=== PATIENT | female | born 1975 | race Caucasian/White ===

== ENCOUNTER 2018-04-07 01:00 | Inpatient (IN) ==
--- NOTE | 2018-04-07 01:23 | ED ---
HPI General Chief complaint: Medical Clearance Stated complaint: Medical/Trans [facility] Time Seen by Provider: 04/07/18 01:05 Source: patient and EMS Mode of arrival: EMS Limitations: no limitations History of Present Illness HPI narrative: Patient was a transfer ER to ER accepted by ENT Dr. Melo and by Dr. Diaz. The patient gives a history of a sore throat for several days was seen today at [place] diagnosed with strep throat and given IM penicillin and discharge. The patient then return at a later time at which time she had a CT neck which show that she had a peritonsillar abscess Onset (ago): day(s) (3) Location: mouth (Oropharynx) Radiation: non-radiation Severity: moderate Severity scale (1-10): 4 Quality: aching Pain Consistency: constant Relieving factors: none Exacerbating factors: eating (Swallowing fluid or swallowing anything according to patient) Associated symptoms: denies other symptoms Treatments prior to arrival: none (Patient was given Decadron, clindamycin IV) Related Data Home Medications Medication Instructions Recorded Confirmed No Known Home Medications 04/07/18 04/07/18 Allergies Allergy/AdvReac Type Severity Reaction Status Date / Time No Known Allergies Allergy Verified 04/07/18 01:13 Review of Systems ROS: all other systems reviewed are negative PMFSH History History Provided By: Patient Surgical History Surgical History H/O tubal ligation (Acute) Social History Social History Substance History: No History of Abuse Second Hand Smoke Exposure: No Smoking Status: Former smoker How Often Do You Have a Drink Containing Alcohol: 2 to 4 times a month Recent Travel in [facility] within the Last 8 Weeks: No Recent Out of Country Travel within the Last 8 Weeks: No Immunization History Tetanus Immunization: <5 Years Tetanus Immunization Year if Known: 2017 Hx Influenza Vaccine This Season: No Exam Narrative Exam Narrative: GENERAL: Well-nourished, well-developed patient in no apparent distress. SKIN: Warm and dry. HEAD: Atraumatic. Normocephalic. EYES: Pupils equal and round. No scleral icterus. No injection or drainage. ENT: No nasal bleeding or discharge. Mucous membranes pink and moist. Posterior oropharynx shows a left peritonsillar bulging consistent with peritonsillar abscess, no stridor no wheezing no drooling and patient's pulse oximetry reads 99% on room air NECK: Trachea midline. No JVD. Left-sided anterior cervical lymphadenopathy CARDIOVASCULAR: Regular rate and rhythm. no rubs or gallops RESPIRATORY: No accessory muscle use. Clear to auscultation. Breath sounds equal bilaterally. GASTROINTESTINAL: Abdomen soft, non-tender, nondistended. No rebound or guarding MUSCULOSKELETAL: Extremities without clubbing, cyanosis, or edema. No obvious deformities. NEUROLOGICAL: Awake and alert. No obvious cranial nerve deficits. Motor grossly within normal limits. Five out of 5 muscle strength in the arms and legs. Normal speech. PSYCHIATRIC: Appropriate mood and affect; insight and judgment normal. Course Initial Documented Vital Signs Temperature 98.9 F 04/07/18 01:05 Pulse Rate 74 04/07/18 01:05 Respiratory Rate 20 04/07/18 01:05 Blood Pressure 112/67 04/07/18 01:05 Pulse Oximetry 99 04/07/18 01:05 Last Documented Vital Signs Temperature 98.9 F 04/07/18 01:05 Pulse Rate 74 04/07/18 01:05 Respiratory Rate 20 04/07/18 01:05 Blood Pressure 112/67 04/07/18 01:05 Pulse Oximetry 99 04/07/18 01:05 Medical Decision Making MDM Narrative Medical Screen Exam Complete: Yes Emergency Medical Condition: Yes Medical Records Medical records reviewed: Yes I reviewed the patient's medical records. Patient was sent with information and a printed chart in which a CTA of the neck show diffuse enlargement of the tonsils on the left with a central 1.8 x 1.1 cm low-attenuation area consistent with peritonsillar abscess there is also diffuse edema that extends along the left parapharyngeal soft tissues with enlargement of the epiglottis no other definite fluid collection is seen. Patient gives medical history of hepatitis bilateral tubal ligation and smoking CBC shows no leukocytosis with WBC of 9.6, H&H of 12.8/37.4, platelet count of 149,000. Electrolytes were all within normal limits, normal kidney function Normal coagulation factors Discharge Plan Physicians Team ED Provider: Anthony Marcelino Primary Care Provider: UNKNOWN, Rxs /Orders / Referrals /Forms Prescriptions: No Action No Known Home Medications RF: 0 Status ED Status: With Doctor
[2018-04-07] MEDS ORDERED: Ketorolac Inj 30 MG/ML (IVP) Vial IV.PUSH ONE (02:24)
[2018-04-07] MEDS: Morphine Inj 4 MG/ML Vial IV.PUSH PRN ×4 (04:08→23:14)
[2018-04-07] MEDS: Sod Chloride 0.9% Inj 1,000 ML IV.CONT SCH ×3 (04:09→23:18)
[2018-04-07] MEDS: Ampicillin/Sulbactam Inj 3 GM in Sodium Chloride 0.9% Inj 100 ML IV.SIG SCH ×4 (04:10→20:45)
[2018-04-07 10:37] LABS: Baso % (Auto) 0.1 % (0.0-2.0); Hematocrit 36.5 % (35.0-46.0); Hemoglobin 12.3 gm/dL (11.6-15.3); Lymph # (Auto) 0.7 th/mm3 (1.0-4.8); Lymph % (Auto) 7.8 % (9.0-44.0); Mean Corpuscular HGB Conc 33.7 % (32.0-36.0); Mean Corpuscular Hemoglobin 30.3 pg (27.0-34.0); Mean Corpuscular Volume 90.1 fL (80.0-100.0); Mean Platelet Volume 10.5 fL (7.0-11.0); Mono # (Auto) 0.5 th/mm3 (0.0-0.9); Mono % (Auto) 5.2 % (0.0-8.0); Neut # (Auto) 7.7 th/mm3 (1.8-7.7); Neut % (Auto) 86.9 % (16.0-70.0); Platelet Count 148 th/mm3 (150-450); Red Blood Count 4.05 mil/mm3 (4.00-5.30); White Blood Count 8.8 th/mm3 (4.0-11.0)
[2018-04-07 11:05] LABS: Anion Gap 9 meq/L (5-15); Blood Urea Nitrogen 9 mg/dL (7-18); Chloride 107 meq/L (98-107); Glomerular Filtration Rate Greater Than 89 mL/min (>89); Glucose,Random 106 mg/dL (74-106); Sodium 141 meq/L (136-145)
[2018-04-08] MEDS: Ampicillin/Sulbactam Inj 3 GM in Sodium Chloride 0.9% Inj 100 ML IV.SIG SCH ×2 (03:00→08:25)
[2018-04-08] MEDS: Morphine Inj 4 MG/ML Vial IV.PUSH PRN ×3 (04:01→12:07)
[2018-04-08 05:50] LABS: Hematocrit 35.9 % (35.0-46.0); Hemoglobin 12.1 gm/dL (11.6-15.3); Mean Corpuscular HGB Conc 33.5 % (32.0-36.0); Mean Corpuscular Hemoglobin 30.4 pg (27.0-34.0); Mean Corpuscular Volume 90.7 fL (80.0-100.0); Mean Platelet Volume 10.7 fL (7.0-11.0); Platelet Count 163 th/mm3 (150-450); Red Blood Count 3.96 mil/mm3 (4.00-5.30); Red Cell Distribution Width 13.1 % (11.6-17.2); White Blood Count 9.2 th/mm3 (4.0-11.0)
[2018-04-08 06:20] LABS: Alanine Aminotransferase 30 U/L (10-53); Albumin 2.6 g/dL (3.4-5.0); Anion Gap 10 meq/L (5-15); Aspartate Aminotransferase 11 U/L (15-37); Blood Urea Nitrogen 10 mg/dL (7-18); Carbon Dioxide 27.3 meq/L (21.0-32.0); Chloride 109 meq/L (98-107); Glomerular Filtration Rate Greater Than 89 mL/min (>89); Glucose,Random 110 mg/dL (74-106); Potassium 4.5 meq/L (3.5-5.1); Sodium 146 meq/L (136-145)
[2018-04-08 06:22] LABS: Alkaline Phosphatase 79 U/L (45-117); Total Protein 6.2 g/dL (6.4-8.2)
[2018-04-08] MEDS: Sod Chloride 0.9% Inj 1,000 ML IV.CONT SCH (08:32)
== END 2018-04-08 12:37 | disposition home or self-care (01) ==
LOC: NEPC 01:00 → NEDA 01:00 → NEPHCDU 05:10 → N07 18:47
PROVIDERS: ADMIT Hospitalist; ATTEND Hospitalist